=== PATIENT | male | born 1985 | race Caucasian/White ===

== ENCOUNTER 2019-07-14 21:30 | Emergency (ER) | payer OTHER ==
[2019-07-14 21:56] VITALS: RESP 18
--- NOTE | 2019-07-14 22:47 | XR ---
EXAM: XR Chest, 2 Views CLINICAL HISTORY: ITS.REASON XR Reason: Pain TECHNIQUE: Frontal and lateral views of the chest. COMPARISON: No relevant prior studies available. FINDINGS: Lungs: Unremarkable. No consolidation. Pleural space: Unremarkable. No pneumothorax. Heart: Unremarkable. No cardiomegaly. Mediastinum: Unremarkable. Bones/joints: Remote right/fixation of a left distal clavicle fracture. One of the screws appears distracted or pulled out. IMPRESSION: No acute cardiopulmonary disease.
[2019-07-14] MEDS ORDERED: IPRATROPIUM-ALBUTEROL 3 ML NEB INHALATION STA (23:02)
[2019-07-14] MEDS ORDERED: methylPREDNISolone SOD SUCCI 125 MG/2 ML VIAL IM STA (23:03)
--- NOTE | 2019-07-14 23:14 | ED ---
General Adult HPI - General Chief complaint: Upper Respiratory Infection Stated complaint: Cough Time Seen by Provider: 07/14/19 22:10 Source: patient, RN notes reviewed, old records reviewed Mode of arrival: ambulatory Limitations: no limitations - History of Present Illness Initial comments: 34-year-old male patient presents to the chief complaint of one week of dry cough, ear pain, mild sore throat. Patient reports that he was recently had an inpatient rehab unit for substance-abuse where he believes that he picked up a cold. Patient denies any reason to be immunocompromised. Patient reports mild anterior wall chest pain with coughing, denies any pain or shortness of breath at rest. Denies any nausea vomiting diarrhea, fevers chills. Denies all other complaints. Systemic: Pt denies fatigue, fever/chills, rash. Pt denies weakness, night sweats, weight loss. Neuro: Pt denies headache, visual disturbances, syncope or pre-syncope. HEENT: Pt denies ocular discharge or irritation, otalgia, rhinorrhea, pharyngitis or notable lymphadenopathy. Cardiopulmonary: Pt denies chest pain, SOB, heart palpitations, dyspnea on exertion. Abdominal/GI: Pt denies abdominal pain, n/v/d. : Pt denies dysuria, burning w/ urination, frequency/urgency. Denies new onset urinary or bowel incontinence. MSK: Pt denies myalgia, loss of strength or function in extremities. Neuro: Pt denies new onset weakness, paresthesias. - Related Data Previous Rx's Medication Instructions Recorded Albuterol Inhaler [Ventolin Hfa 1 - 2 puff INHALATION Q4-6H PRN #1 07/14/19 Inhaler] inhaler predniSONE 50 mg PO DAILY #4 tab 07/14/19 Allergies Allergy/AdvReac Type Severity Reaction Status Date / Time No Known Allergies Allergy Verified 07/14/19 21:56 Review of Systems ROS Statement: Those systems with pertinent positive or pertinent negative responses have been documented in the HPI. ROS Other: All systems not noted in ROS Statement are negative. Past Medical History Past Medical History: No Reported History History of Any Multi-Drug Resistant Organisms: None Reported Past Surgical History: Orthopedic Surgery Additional Past Surgical History / Comment(s): heel, clavicle. Past Psychological History: No Psychological Hx Reported Smoking Status: Current every day smoker Past Alcohol Use History: None Reported Past Drug Use History: Heroin General Exam - General Exam Comments Initial Comments: Constitutional: NAD, AOX3, Pt has pleasant affect. HEENT: NC/AT, trachea midline, neck supple, no lymphadenopathy. Posterior pharynx non erythematous, without exudates. External ears appear normal, without discharge. Mucous membranes moist. Eyes PERRLA, EOM intact. There is no scleral icterus. No pallor noted. Cardiopulmonary: RRR, no murmurs, rubs or gallops, no JVD noted. Lungs CTAB in anterior and posterior chavez. No peripheral edema. Abdominal exam: Abdomen soft and non-distended. Abdomen non-tender to palpation in all 4 quadrants. Bowel sounds active in LLQ. No hepatosplenomegaly. No ecchymosis Neuro: CN II-XII grossly intact. No nuchal rigidity. No raccon eyes, no sandra sign, no hemotympanum. No cervical spinal tenderness. MSK: No posterior calf tenderness bilaterally, homans sign negative bilaterally. Posterior tibialis and radial pulse +2 bilaterally. Sensation intact in upper and lower extremities. Full active ROM in upper and lower extremities, 5/5 stregnth. Limitations: no limitations Course Vital Signs 07/14/19 21:53 Temperature 99.2 F Pulse Rate 85 Respiratory 18 Rate Blood Pressure 130/83 O2 Sat by Pulse 97 Oximetry Medical Decision Making - Medical Decision Making 34-year-old male patient presents to the chief complaint of one week of dry cough, ear pain, mild sore throat. Patient reports that he was recently had an inpatient rehab unit for substance-abuse where he believes that he picked up a cold. Patient denies any reason to be immunocompromised. Patient reports mild anterior wall chest pain with coughing, denies any pain or shortness of breath at rest. Denies any nausea vomiting diarrhea, fevers chills. Denies all other complaints. Patient also stable, afebrile. Physical exam did not display acute pathology. Lungs clear to auscultation bilaterally. Chest revealed no acute processes. Patient was experiencing a viral bronchitis syndrome. Patient discharged with steroids, breathing treatments. Patient feeling much improved after breathing treatment. Case discussed with Dr. Mueller. Disposition Clinical Impression: Acute bronchitis Disposition: HOME SELF-CARE Condition: Stable Instructions (If sedation given, give patient instructions): Acute Bronchitis (ED) Additional Instructions: Patient to adhere to previously discussed treatment plan and will take medication(s) as directed. Patient to follow up with PCP in 1-2 days. Patient to return to ED if symptoms do not improve. Follow-up with primary care provider tomorrow, return to ER if condition worsens. Prescriptions: predniSONE 50 mg PO DAILY #4 tab Albuterol Inhaler [Ventolin Hfa Inhaler] 1 - 2 puff INHALATION Q4-6H PRN #1 inhaler PRN Reason: Cough Is patient prescribed a controlled substance at d/c from ED?: No Referrals: None,Stated [Primary Care Provider] - 1-2 days
[2019-07-14 23:44] VITALS: BP 123/73; PULSE 56; TEMP 98.9
== END 2019-07-14 23:44 | disposition home or self-care (01) ==
LOC: EC 21:30
DX: J20.9 Acute bronchitis, unspecified (principal); H92.09 Otalgia, unspecified ear; F17.200 Nicotine dependence, unspecified, uncomplicated
CPT/HCPCS: 94640; 71046; 99284; 96372; J2930